=== PATIENT | male | born 1975 | race Caucasian/White ===

== ENCOUNTER 2017-06-15 07:08 | Day surgery (SDC) | payer OTHER ==
[~2017-06-15 07:08] MED LIST: METFORMIN HCL500 MG PO; TOPROL XL50 M1 PO
[2017-06-15] MEDS ORDERED: PERCOCET 5-3251 EACH PO (11:01)
== END 2017-06-15 14:35 | disposition home or self-care (01) ==
LOC: CIR.AMB 07:08
DX: D35.1 Benign neoplasm of parathyroid gland (principal)